=== PATIENT | male | born 1955 | race Caucasian/White ===

== ENCOUNTER 2016-10-14 17:45 | Inpatient (IN) | payer BC ==
[~2016-10-14] VITALS: Ht 162.6 cm; Wt 66.2 kg
[~2016-10-14 17:45] MED LIST: APAP/HYDROCODON1 T13 PO; CLINDAMYCIN HC300 MG PO; COL100 PO; DULERA1 AR2 INH; ECO81 PO; LEVAQUIN750 MG PO; MEDDP PO; METOPROLOL TART25 M1 PO; PROAIR HFA0.09 MG/A1 INH; ZES10 PO; ZOC10 PO
--- NOTE | 2016-10-14 19:05 | NUR ---
PT C/O RIGHT FLANK PAIN, WITH HX OF COLD AND PT REPORTS HE IS ON ZPACK AT THIS TIME FOR COUGH. PT IS ALERT AND ORIENTED, BREATHING IS UNLABORED AND EVEN, WHEN COUGHING HIS RIGHT SIDE HURTS MORE. PT SENT TO RESTROOM FOR URINE SAMPLE, WALKING WITH A STEADY GAIT.
--- NOTE | 2016-10-14 19:10 | NUR ---
GAVE REPORT TO EDITH MCDANIEL TO CONTINUE PT CARE AT THIS TIME.
--- NOTE | 2016-10-14 19:14 | NUR ---
REC'D PT SITTING NEXT TO JOSE CHARLES, RESP E/U.
--- NOTE | 2016-10-14 20:20 | NUR ---
MEDS ADMIN PER MD ORDER; SEE EMAR. PT STS NO ALLERGIES TO MEDS
[2016-10-14 20:21] LABS: BASOPHIL % 0.8 % (0-2); PLATELET COUNT 287 x10^3mcL (130-400)
[2016-10-14 20:22] LABS: RED CELL DISTRIBUTION WIDTH 14.6 % (11.5-14.5)
[2016-10-14 20:36] LABS: CALCIUM 8.9 mg/dL (8.5-10.1); CARBON DIOXIDE 30.5 mmol/L (21-32); CHLORIDE SERUM 100 mmol/L (98-107); GFR1 > 60 mL/min; GLUCOSE SERUM 108 mg/dL (74-106); POTASSIUM SERUM 4.1 mmol/L (3.5-5.1); SODIUM SERUM 133 mmol/L (136-145)
[2016-10-14 20:40] LABS: ALKALINE PHOSPHATASE 80 U/L (46-116); ALT/SGPT 37 U/L (16-63); AST/SGOT 20 U/L (15-37); BILIRUBIN TOTAL 0.95 mg/dL (0.20-1.00); CHOLESTEROL 150 mg/dL (<200); HDL CHOLESTEROL 36 mg/dL (40-60); TOTAL PROTEIN, SERUM 7.7 g/dL (6.4-8.2)
[2016-10-14 20:46] LABS: ALBUMIN 3.3 g/dL (3.4-5.0)
[2016-10-14] MEDS ORDERED: SINGULAIR10 MG PO (21:25)
[2016-10-14] MEDS ORDERED: BENZONATATE200 MG PO (21:25)
--- NOTE | 2016-10-14 21:25 | NUR ---
REPORT GIVEN TO DEJAN TO ASSUME CARE OF PT
--- NOTE | 2016-10-14 21:36 | NUR ---
PT IN BED AWAKE ALERT, RESP E/U, STS NO PAIN AT THIS TIME.
[2016-10-14 21:58] VITALS: BP 98/56
--- NOTE | 2016-10-14 22:04 | NUR ---
REC'D AAOX4, SPEECH CLEAR. DENIES H/A. DENIES ABD PAIN AT THIS TIME. ON 2L VIA NC, NO SOB NOTED. ATTACHED TELE 11. IV SITE WNL. DAUGHTER AT THE BEDSIDE. ORIENTED TO ROOM AND SURROUNDINGS, CALL LIGHT WITHIN REACH. PROVIDED REPORT TO LORENE MCDANIEL FOR CONTINUITY OF CARE.
--- NOTE | 2016-10-14 23:25 | NUR ---
PT. AWAKE BUT RESTING QUIETLY. DENIES ANY PAIN OR NAUSEA AT THIS TIME. NPO AT THIS TIME FOR US TEST. PT. AWARE. CALL LIGHT REMAINS WITHIN REACH.
[2016-10-14 23:44] LABS: CHOLESTEROL/HDL RATIO 4.2; MAGNESIUM 2.3 mg/dL (1.8-2.4); PHOSPHOROUS 3.5 mg/dL (2.5-4.9); T3 TOTAL 0.69 ng/mL
[2016-10-15 00:05] LABS: FREE T4 1.02 ng/dL (0.76-1.46); FREE THYROXINE INDEX 1.9 ug/dL (1.4-4.5); T4(THYROXINE) 5.8 ug/dL (4.7-13.3)
--- NOTE | 2016-10-15 03:54 | NUR ---
PT. SLEEPING AT THIS TIME. NO RESP. DISTRESS NOTED THUS FAR. NO C/O PAIN. IVF INFUSING WELL. CALL LIGHT WITHIN REACH.
[2016-10-15 06:21] LABS: ALKALINE PHOSPHATASE 75 U/L (46-116); ALT/SGPT 21 U/L (16-63); AST/SGOT 17 U/L (15-37); BILIRUBIN TOTAL 0.52 mg/dL (0.20-1.00); CALCIUM 8.5 mg/dL (8.5-10.1); CARBON DIOXIDE 28.2 mmol/L (21-32); CHLORIDE SERUM 103 mmol/L (98-107); CREATININE SERUM 0.8 mg/dL (0.7-1.3); GFR1 > 60 mL/min; GLUCOSE SERUM 162 mg/dL (74-106); POTASSIUM SERUM 4.7 mmol/L (3.5-5.1); SODIUM SERUM 140 mmol/L (136-145); TOTAL PROTEIN, SERUM 7.2 g/dL (6.4-8.2)
[2016-10-15 06:22] VITALS: BP 102/51
[2016-10-15 06:28] LABS: ALBUMIN 2.8 g/dL (3.4-5.0)
--- NOTE | 2016-10-15 06:36 | NUR ---
PT. AWAKE AND WALKED TO RESTROOM AND BACK TO BED. TOLERATED ACTIVITY WELL. IVF INFUSING WELL. CALL LIGHT WITHIN REACH. WILL ENDORSE PT. CARE TO INCOMING NURSE.
[2016-10-15 07:09] LABS: PLATELET COUNT 238 x10^3mcL (130-400); RED CELL DISTRIBUTION WIDTH 14.4 % (11.5-14.5)
[2016-10-15 07:38] LABS: UA SPECIFIC GRAVITY >=1.030 (1.005-1.035); microscopic required? YES; urine erythrocyte NEGATIVE (NEGATIVE)
--- NOTE | 2016-10-15 07:52 | NUR ---
RECEIVED AWAKE, ALERT AND ORIENTED. IN NO ACUTE RESP. DISTRES. MILD SOB OTED WITH ACTIVITIES. NO C/O PAIN OR DISCOMFORT AT THIS TIME. IVF INFUSING WELL AND SITE CLEAR. CALL LIGHT WITHIN REACH. WILL CONTINUE W/PLAN OF CARE.
[2016-10-15 09:08] LABS: BAND NEUTROPHIL 6 % (0-10); BASOPHIL 0 % (0-2); MONOCYTE 5 % (0-7); PLATELET MORPHOLOGY PLATELETS NORMAL; SEGMENTED NEUTROPHILS 85 % (37-75)
[2016-10-15 09:09] LABS: rbc morphology (normal/abnorm) NORMAL (NORMAL)
[2016-10-15 10:56] VITALS: BP 102/55
[2016-10-15 14:20] VITALS: BP 106/56
--- NOTE | 2016-10-15 15:00 | NUR ---
PT TOLERATED WELL WITH MEALS. DENIES N/V NOR ABD. DISCOMFORT. IVF INFUSING WELL. WILL CONTINUE TO MONITOR.
[2016-10-15 16:50] VITALS: Ht 162.6 cm; Wt 66.2 kg
[2016-10-15 18:16] VITALS: BP 100/66
--- NOTE | 2016-10-15 18:41 | NUR ---
REMAINS IN NO DISTRESS. AWAKE, ALERT AND ORIENTED. FAMILY AT BEDSIDE. VS REMAINS WNL. PT TOLERATED WELL WITH MEALS, NO C/O N/V NOR ABD. PAIN. IVF INFUSING WELL AND SITE CLEAR. CALL LIGHT WITHIN REACH. WILL BE ENDORSED TO INCOMING SHIFT.
--- NOTE | 2016-10-15 20:00 | NUR ---
PATIENT AWAKE, ALERT, ORIENTED X4 IN BED. RESPIRATION EVEN AND UNLABORED, ON ROOM AIR AT THIS TIME, C/O DRY COUGH, ON RT PROTOCOL. ONGOING 0.9% NS AT 100 CC/HR INFUSING WELL AT THE LEFT ANTECUBITAL AREA. C/O ON/OFF PAIN TO LT SIDE OF ABDOMEN. VOIDING FREELY, DRIBBLES AT TIMES, USES URINAL. SKIN DRY AND INTACT. DAUGHTER IS HERE TO VISIT PATIENT. WILL CONTINUE TO MONITOR.
[2016-10-15 20:42] VITALS: BP 111/56
[2016-10-16 05:17] VITALS: BP 100/53
--- NOTE | 2016-10-16 06:32 | NUR ---
PATIENT AWAKE IN BED. APPEARS TO HAVE EPISODE OF CONFUSION. RESPIRATION EVEN AND UNLABORED. ASSISTED WITH NEEDS. PLACED CALL LIGHT WITHIN REACH AT ALL TIMES.
--- NOTE | 2016-10-16 07:47 | NUR ---
RECEIVED AWAKE, ALERT BUT FORGETFUL AT TIMES. NO RESP. DISTRESS NOTED. NO C/O PAIN OR DISCOMFORT AT THIS TIME. IVF INFUSING WELL AND SITE CLEAR. CALL LIGHT WITHIN REACH. WILL CONTINUE W/PLAN OF CARE.
--- NOTE | 2016-10-16 09:12 | NUR ---
AM ROUNDS DONE BY DR. RAPP AND MEDICAL TEAM. PLAN TO REPEAT CXR THIS AM AND REASSESS PNA AND CONT. WITH CURRENT TX. PLAN TO DC THIS PM IF REMAINS STABLE. PT AGREED WITH PLAN.CONCERNS ADRESSED.
[2016-10-16 09:50] VITALS: BP 109/58
[2016-10-16 13:38] VITALS: BP 103/60
--- NOTE | 2016-10-16 14:03 | NUR ---
WALKING ON THE HALLWAYS IN NO DISTRESS. DENIES PAIN OR DISCOMFORT.
[2016-10-16] MEDS ORDERED: LEVAQUIN750 MG PO (14:05)
[2016-10-16] MEDS ORDERED: PROAIR HFA8.5 GM IH (14:05)
[2016-10-16] MEDS ORDERED: CLINDAMYCIN HC300 MG PO (14:05)
[2016-10-16] MEDS ORDERED: MEDDP PO (14:06)
[2016-10-16] MEDS ORDERED: MUCINEX600 MG PO (14:07)
[2016-10-16] MEDS ORDERED: LAC PO (14:35)
--- NOTE | 2016-10-16 15:15 | NUR ---
PT WILL BE DC'D HOME THIS PM. DC INSTRUCTIONS GIVEN. HL REMOVED AND SITE CLEAR. PT IS WAITING FOR RIDE HOME. SITTING ON BED, NO DISTRESS. NO C/O PAIN AT THIS TIME.
--- NOTE | 2016-10-16 15:33 | NUR ---
PT DC'D HOME IN NO DISTRESS. AWAKE, ALERT AND ORIENTED. NO CHANGES IN VS. NO C/O PAIN OR DISCOMFORT. DC INSTRUCTIONS REVIEWED WITH PT AND DAUGHTER. PERSONAL BELONGINGS TAKEN HOME.
== END 2016-10-16 15:25 | disposition home or self-care (01) | DRG 177 ==
LOC: ED 17:45 → DU 21:11
PROVIDERS: Emergency Medicine; ADMIT Family Medicine
DX: J69.0 Pneumonitis due to inhalation of food and vomit (principal); E43 Unspecified severe protein-calorie malnutrition; J96.20 Acute and chronic respiratory failure, unspecified whether with hypoxia or hypercapnia; N17.0 Acute kidney failure with tubular necrosis; J44.1 Chronic obstructive pulmonary disease with (acute) exacerbation; J45.901 Unspecified asthma with (acute) exacerbation; N39.0 Urinary tract infection, site not specified; R73.03 Prediabetes; E78.2 Mixed hyperlipidemia; J44.9 Chronic obstructive pulmonary disease, unspecified; S23.29XA Dislocation of other parts of thorax, initial encounter; X58.XXXA Exposure to other specified factors, initial encounter; Y93.89 Activity, other specified; Y92.89 Other specified places as the place of occurrence of the external cause; Z83.3 Family history of diabetes mellitus; Y99.8 Other external cause status; Z68.25 Body mass index [BMI] 25.0-25.9, adult
CPT/HCPCS: 36600; 82962; 83880; 84439; 94150; J0696; J1885; J1956; J2920; J2930; J3490; J7030; J7613; J7620; J7626; Q0092